=== PATIENT | male | born 1970 | race Two or more races ===

== ENCOUNTER 2020-01-04 16:02 | Emergency (ER) | payer SELFPAY ==
[~2020-01-04] VITALS: Ht 167.6 cm; Wt 85.0 kg
[2020-01-04 17:30] LABS: BASOPHILS % 0.8 % (0.0-2.0); EOSINOPHILS % 0.6 % (0.0-5.0); HEMOGLOBIN. 17.8 g/dL (14.0-18.0); LYMPHOCYTES % 26.7 % (20.0-50.0); MEAN CORPUSCULAR VOLUME 86.9 fL (80.0-94.0); MEAN PLATELET VOLUME 7.8 fl (7.4-10.4); MONOCYTES % 6.6 % (2.0-8.0); NEUTROPHILS % 65.3 % (40.0-76.0); PLATELET 233 x1000/uL (130-400); RED BLOOD CELL COUNT 5.75 mill/uL (4.7-6.1); RED CELL DISTRIBUTION WIDTH 13.7 % (11.6-14.6)
[2020-01-04 17:39] LABS: CHLORIDE 106 mEq/L (98-107)
[2020-01-04] MEDS ORDERED: POTASSIUM CHLORIDE 20MEQ/PACKET PO ONE (19:00)
[2020-01-04 20:24] VITALS: BP 148/76
== END 2020-01-04 20:32 | disposition home or self-care (01) ==
LOC: ER 16:02
DX: G45.9 Transient cerebral ischemic attack, unspecified (principal); R53.1 Weakness; E87.6 Hypokalemia; I10 Essential (primary) hypertension; E86.0 Dehydration; R73.9 Hyperglycemia, unspecified; K59.00 Constipation, unspecified
CPT/HCPCS: 36415; 71045; 80053; 82962; 83880; 84484; 85025; 93005; 99285